=== PATIENT | female | born 1950 | race Asian ===

== ENCOUNTER 2018-05-19 13:35 | Emergency (ER) | payer OTHER ==
[~2018-05-19] VITALS: Ht 152.4 cm; Wt 63.6 kg
[2018-05-19] MEDS ORDERED: ATOR10TA84 PO (13:51)
[2018-05-19] MEDS ORDERED: METF-960 PO (13:51)
[2018-05-19 15:58] VITALS: BP 133/72
== END 2018-05-19 16:04 | disposition home or self-care (01) ==
LOC: EMS 13:35
DX: R21 Rash and other nonspecific skin eruption (principal); R22.0 Localized swelling, mass and lump, head; E11.9 Type 2 diabetes mellitus without complications; E78.00 Pure hypercholesterolemia, unspecified; Z79.899 Other long term (current) drug therapy

== ENCOUNTER 2019-12-15 06:38 | Day surgery (SDC) | payer OTHER ==
[2019-12-14 09:12] LABS: COVID AG,FIA SOURCE NASOPHARYNGEAL
[~2019-12-15] VITALS: Ht 152.4 cm; Wt 62.7 kg
[~2019-12-15 06:38] MED LIST: ALPRAZolam 0.5 MG TABLET PO ONE; ASPI-728 PO; ATOR10TA84 PO; CYCLOPENTOLATE HCL 1% 2 ML OPHTHALMIC SOLUTION ONE; KETOROLAC TROMETHAMINE 0.5% 5 ML OPHTHALMIC SOLUTION ONE; LOSA25TA21 PO; METF-960 PO; MOXIFLOXACIN HCL 0.5% 3 ML OPHTHALMIC SOLUTION ONE; PHENYLEPHRINE HCL 2.5% 2 ML OPHTHALMIC SOLUTION ONE; RINGERS SOLUTION,LACTATED 500 ML IV ONE; TETRACAINE HCL/PF 0.5% 4 ML OPHTHALMIC SOLUTION ONE; TROPICAMIDE 1% 2 ML OPHTHALMIC SOLUTION ONE
[2019-12-15] MEDS ORDERED: MIDAZOLAM HCL 2 MG/2 ML VIAL IVP ONE (06:39)
[2019-12-15] MEDS: PHENYLEPHRINE HCL 2.5% 2 ML OPHTHALMIC SOLUTION OS SCH ×3 (07:00→07:10)
[2019-12-15] MEDS: CYCLOPENTOLATE HCL 1% 2 ML OPHTHALMIC SOLUTION OS SCH ×3 (07:00→07:10)
[2019-12-15] MEDS: KETOROLAC TROMETHAMINE 0.5% 5 ML OPHTHALMIC SOLUTION OS SCH ×3 (07:00→07:10)
[2019-12-15] MEDS: MOXIFLOXACIN HCL 0.5% 3 ML OPHTHALMIC SOLUTION OS SCH ×3 (07:00→07:10)
[2019-12-15] MEDS: TETRACAINE HCL/PF 0.5% 4 ML OPHTHALMIC SOLUTION OS SCH ×3 (07:00→07:10)
[2019-12-15] MEDS: TROPICAMIDE 1% 2 ML OPHTHALMIC SOLUTION OS SCH ×3 (07:00→07:10)
[2019-12-15] MEDS ORDERED: HYALURONATE SODIUM 12 MG/ML 0.8 ML SYRINGE IO ONE (17:57)
[2019-12-15] MEDS ORDERED: NEOMYCIN/POLYMYXIN B/DEXAMETH 3.5 GM OPHTHALMIC OINTMENT ONE (17:57)
[2019-12-15] MEDS ORDERED: EPINEPHrine 1:10,000 [1 MG/10 ML] SYRINGE ONE (17:57)
[2019-12-15] MEDS ORDERED: LIDOCAINE 1% 20 ML VIAL *UNAVILABLE ONE (17:57)
== END 2019-12-15 08:30 | disposition home or self-care (01) ==
LOC: SURGERY 06:38
PROVIDERS: ATTEND Ophthalmology
DX: E11.36 Type 2 diabetes mellitus with diabetic cataract (principal); H25.12 Age-related nuclear cataract, left eye; I10 Essential (primary) hypertension; Z98.890 Other specified postprocedural states
CPT/HCPCS: 66984; 87426; C9803; J0171; J2250; J3490 ×2; J7120; V2632